=== PATIENT | female | born 1930 | race Caucasian/White ===

== ENCOUNTER 2018-06-06 13:42 | Inpatient (IN) | payer MEDICARE, OTHER ==
[2018-06-06] VITALS (10 sets, daily range): BP systolic 93–142; BP diastolic 43–92
[~2018-06-06] VITALS: Ht 154.9 cm; Wt 73.5 kg
[2018-06-06] MEDS ORDERED: SODIUM CHLORIDE 0.9% 500 ML IVB ONE (14:21)
[2018-06-06 15:03] LABS: Basophils # (auto) 0.1 uL; Eosinophils # (auto) 0 uL; Hemoglobin 7.1 g/dL (12.2-16.2); Lymphocytes # (auto) 1.3 uL; Monocytes # (auto) 0.5 uL; Neutrophils # (auto) 5.6 uL
[2018-06-06 15:04] LABS: Basophils % (auto) 1.1 % (0.0-2.0); Eosinophils % (auto) 0.2 % (0.0-7.0); Hematocrit 20.6 % (36.0-46.0); Lymphocytes % (auto) 17.8 % (10.0-50.0); Mean Corpuscular Hgb Conc. 34.5 g/dL (32.0-36.0); Mean Corpuscular Volume 95.7 fL (80.0-100.0); Monocytes % (auto) 6.6 % (0.0-12.0); Neutrophils % (auto) 74.3 % (37.0-80.0); Platelet Count (auto) 169 10^3/uL (140-450); Red Blood Cells 2.15 10^6/uL (4.0-5.20); Red Cell Distribution Width 14.4 % (11.8-14.3); White Blood Cell 7.6 10^3/uL (4.4-10.8)
[2018-06-06 15:17] LABS: INR 1.1 (0.9-1.15); Partial Thromboplastin Time 23.3 sec (23.78-33.04); Prothrombin Time 11.7 sec (9.27-12.13)
[2018-06-06 15:29] LABS: Alanine Aminotransferase 11 U/L (13-56); Albumin 2.6 g/dL (3.4-5.0); Alkaline Phosphatase 40 U/L (45-117); Anion Gap 12 (5-15); Aspartate Aminotransferase 10 U/L (15-37); BUN/Creatinine Ratio 35.2; Bilirubin, Total 0.4 mg/dL (0.2-1.0); Blood Urea Nitrogen 56 mg/dL (7-18); Calcium 7.5 mg/dL (8.5-10.1); Carbon Dioxide 19 mmol/L (21-32); Chloride 98 mmol/L (98-107); GFR African American 39 mL/min; GFR Non-African American 32 mL/min; Glucose 135 mg/dL (74-106); Magnesium 1.5 mg/dL (1.6-2.6); Potassium 4.5 mmol/L (3.5-5.1); Sodium 129 mmol/L (136-145); Total Protein 5.3 g/dL (6.4-8.2)
[2018-06-06] MEDS ORDERED: MORPHINE SULF INJ 2 MG/ML SYRINGE 1ML IV PRN (16:15)
[2018-06-06] MEDS ORDERED: DEXTROSE (50%) 50ML SYRG IV PRN (16:15)
[2018-06-06] MEDS ORDERED: NITROGLYCERIN 0.4 MG SL TAB SL PRN (16:15)
[2018-06-06] MEDS ORDERED: HYDROcodone-ACET 5/325MG TAB PO PRN (16:30)
[2018-06-06] MEDS ORDERED: ONDANSETRON HCL 4 MG/2 ML VIAL IV PRN (16:30)
[2018-06-06] MEDS ORDERED: cefTRIAXone 1GM/10ml IVPUSH 10 ML IV ONE (16:30)
[2018-06-06] MEDS: InsuLIN REG 1unit/0.01ml Soln (100units/ml) SC SCH ×2 (17:00→22:00)
[2018-06-06] MEDS: ACCU-CHEK COMFORT CURVE STRIP VI SCH ×2 (17:00→22:00)
[2018-06-06] MEDS ORDERED: ETOMIDATE (2MG/ML) 20ML VIAL IV ONE (17:12)
[2018-06-06] MEDS ORDERED: SUCCINYLCHOLINE CHLORIDE 20 MG/ML 10ML VIAL IV ONE (17:13)
[2018-06-06] MEDS ORDERED: NOREPINEPHRINE 8 MG/250ML KIT 250 ML IV ONE (18:34)
[2018-06-06] MEDS ORDERED: NOREPINEPHRINE 8 MG/250ML KIT 250 ML IV SCH (18:45)
[2018-06-06] MEDS: NOREPINEPHRINE 8 MG/250ML KIT 250 ML IV SCH (19:00)
[2018-06-06] MEDS: ATORVASTATIN 20 MG TAB PO SCH (23:20)
[2018-06-07] VITALS (99 sets, daily range): BP systolic 74–150; BP diastolic 29–89
[2018-06-07 00:56] LABS: Hemoglobin 7.2 g/dL (12.2-16.2)
[2018-06-07 00:57] LABS: Hematocrit 21.1 % (36.0-46.0)
[2018-06-07] MEDS ORDERED: TEMAZEPAM 15 MG CAP PO ONE ×2 (01:45→22:00)
[2018-06-07] MEDS: ACCU-CHEK COMFORT CURVE STRIP VI SCH ×4 (07:19→22:08)
[2018-06-07] MEDS: InsuLIN REG 1unit/0.01ml Soln (100units/ml) SC SCH ×4 (07:48→22:00)
[2018-06-07 08:53] LABS: Basophils # (auto) 0.1 uL; Eosinophils # (auto) 0.1 uL; Hemoglobin 8.1 g/dL (12.2-16.2); Lymphocytes # (auto) 1.5 uL; Monocytes # (auto) 0.8 uL; Neutrophils # (auto) 4.6 uL; White Blood Cell 7.1 10^3/uL (4.4-10.8)
[2018-06-07 08:55] LABS: Basophils % (auto) 1.1 % (0.0-2.0); Hematocrit 23.2 % (36.0-46.0); Lymphocytes % (auto) 21.5 % (10.0-50.0); Mean Corpuscular Hemoglobin 32.1 pg (28.0-32.0); Mean Corpuscular Hgb Conc. 34.8 g/dL (32.0-36.0); Mean Corpuscular Volume 92.5 fL (80.0-100.0); Monocytes % (auto) 11.4 % (0.0-12.0); Platelet Count (auto) 129 10^3/uL (140-450); Red Blood Cells 2.51 10^6/uL (4.0-5.20)
[2018-06-07 09:09] LABS: Albumin 2.3 g/dL (3.4-5.0); BUN/Creatinine Ratio 47.8; Calcium 7.5 mg/dL (8.5-10.1); Magnesium 1.3 mg/dL (1.6-2.6); Potassium 4.2 mmol/L (3.5-5.1)
[2018-06-07 09:12] LABS: Bilirubin, Total 0.4 mg/dL (0.2-1.0); Total Protein 4.5 g/dL (6.4-8.2)
[2018-06-07] MEDS: cefTRIAXone 1GM/10ml IVPUSH 10 ML IV SCH (09:47)
[2018-06-07] MEDS: FUROSEMIDE 40 MG TAB PO SCH (09:48)
[2018-06-07] MEDS: MAGNESIUM SULFATE 1GM/100ML 100 ML IV SCH ×2 (09:52→11:02)
[2018-06-07] MEDS ORDERED: PANTOPRAZOLE 40 MG TAB PO SCH (10:00)
[2018-06-07 17:06] LABS: Urine Bacteria MOD /hpf (None Seen); Urine WBC 4029 /hpf (0 - 5); Urine WBC Clumps PRESENT /hpf (None Seen)
[2018-06-07 17:11] LABS: Urine Blood 2+ /uL (Negative)
[2018-06-07] MEDS: ACETAMINOPHEN 500 MG TAB PO PRN (18:38)
[2018-06-07] MEDS: NOREPINEPHRINE 8 MG/250ML KIT 250 ML IV SCH (18:42)
[2018-06-07] MEDS: ATORVASTATIN 20 MG TAB PO SCH (22:11)
[2018-06-07] MEDS: PANTOPRAZOLE 40 MG TAB PO SCH (22:11)
[2018-06-08] VITALS (68 sets, daily range): BP systolic 93–154; BP diastolic 31–74
[2018-06-08 03:29] LABS: Basophils # (auto) 0.1 uL; Basophils % (auto) 0.9 % (0.0-2.0); Eosinophils # (auto) 0.3 uL; Lymphocytes # (auto) 1.8 uL; Red Cell Distribution Width 14.9 % (11.8-14.3); White Blood Cell 6.8 10^3/uL (4.4-10.8)
[2018-06-08 03:31] LABS: Eosinophils % (auto) 3.8 % (0.0-7.0); Hematocrit 20.4 % (36.0-46.0); Lymphocytes % (auto) 26.6 % (10.0-50.0); Mean Corpuscular Hemoglobin 32.5 pg (28.0-32.0); Mean Corpuscular Hgb Conc. 33.6 g/dL (32.0-36.0); Mean Corpuscular Volume 96.5 fL (80.0-100.0); Monocytes # (auto) 0.9 uL; Monocytes % (auto) 12.8 % (0.0-12.0); Neutrophils # (auto) 3.8 uL; Neutrophils % (auto) 55.9 % (37.0-80.0); Nucleated Red Blood Cells % 0.1 %; Platelet Count (auto) 126 10^3/uL (140-450); Red Blood Cells 2.12 10^6/uL (4.0-5.20)
[2018-06-08 03:44] LABS: BUN/Creatinine Ratio 38.5; Calcium 7.6 mg/dL (8.5-10.1); Potassium 3.8 mmol/L (3.5-5.1)
[2018-06-08 03:56] LABS: Hemoglobin 6.9 g/dL (12.2-16.2)
[2018-06-08] MEDS: ACCU-CHEK COMFORT CURVE STRIP VI SCH ×4 (06:48→21:46)
[2018-06-08] MEDS: InsuLIN REG 1unit/0.01ml Soln (100units/ml) SC SCH ×4 (06:48→21:31)
[2018-06-08] MEDS: cefTRIAXone 1GM/10ml IVPUSH 10 ML IV SCH (09:00)
[2018-06-08] MEDS ORDERED: MIDAZOLAM HCL 5 MG/ML-1ML VIAL ONE (11:11)
[2018-06-08] MEDS ORDERED: SODIUM CHLORIDE LOCK 10 ML ONE (11:11)
[2018-06-08] MEDS ORDERED: LIDOCAINE VISCOUS 2% 15ML UD ONE (11:11)
[2018-06-08] MEDS ORDERED: fentaNYL CITRATE 100 MCG/2 ML VL ONE (11:12)
[2018-06-08] MEDS: PANTOPRAZOLE 40 MG TAB PO SCH ×2 (15:00→21:30)
[2018-06-08] MEDS: FUROSEMIDE 40 MG TAB PO SCH (15:00)
[2018-06-08] MEDS: NOREPINEPHRINE 8 MG/250ML KIT 250 ML IV SCH (16:33)
[2018-06-08] MEDS: ATORVASTATIN 20 MG TAB PO SCH (21:30)
[2018-06-08] MEDS: TEMAZEPAM 15 MG CAP PO PRN (22:10)
[2018-06-09 05:00] VITALS: BP 128/51
[2018-06-09] MEDS: ACCU-CHEK COMFORT CURVE STRIP VI SCH ×4 (06:14→21:35)
[2018-06-09] MEDS: InsuLIN REG 1unit/0.01ml Soln (100units/ml) SC SCH ×4 (06:15→21:35)
[2018-06-09 06:33] LABS: Basophils # (auto) 0.1 uL; Basophils % (auto) 0.8 % (0.0-2.0); Eosinophils # (auto) 0.3 uL; Eosinophils % (auto) 4.8 % (0.0-7.0); Hematocrit 26.5 % (36.0-46.0); Hemoglobin 9.1 g/dL (12.2-16.2); Lymphocytes # (auto) 1.3 uL; Mean Corpuscular Hemoglobin 32.1 pg (28.0-32.0); Mean Corpuscular Hgb Conc. 34.4 g/dL (32.0-36.0); Mean Corpuscular Volume 93.5 fL (80.0-100.0); Monocytes # (auto) 0.7 uL; Monocytes % (auto) 10.9 % (0.0-12.0); Neutrophils # (auto) 4.1 uL; Neutrophils % (auto) 63.5 % (37.0-80.0); Nucleated Red Blood Cells % 0.1 %; Platelet Count (auto) 123 10^3/uL (140-450); Red Blood Cells 2.83 10^6/uL (4.0-5.20); Red Cell Distribution Width 14.8 % (11.8-14.3); White Blood Cell 6.5 10^3/uL (4.4-10.8)
[2018-06-09 06:58] LABS: BUN/Creatinine Ratio 24.4; Calcium 7.7 mg/dL (8.5-10.1); Potassium 3.7 mmol/L (3.5-5.1)
[2018-06-09 08:00] VITALS: BP 107/51
[2018-06-09 08:38] VITALS: BP 107/51
[2018-06-09] MEDS: cefTRIAXone 1GM/10ml IVPUSH 10 ML IV SCH (08:46)
[2018-06-09] MEDS: FUROSEMIDE 40 MG TAB PO SCH (08:47)
[2018-06-09] MEDS: PANTOPRAZOLE 40 MG TAB PO SCH ×2 (08:47→21:34)
[2018-06-09 13:00] VITALS: BP 113/54
[2018-06-09] MEDS: ACETAMINOPHEN 500 MG TAB PO PRN (15:45)
[2018-06-09 16:00] VITALS: BP 139/59
[2018-06-09] MEDS: ATORVASTATIN 20 MG TAB PO SCH (21:34)
[2018-06-09] MEDS: TEMAZEPAM 15 MG CAP PO PRN (21:45)
[2018-06-09 22:05] VITALS: BP 129/68
[2018-06-10 04:59] VITALS: BP 126/57
[2018-06-10] MEDS: InsuLIN REG 1unit/0.01ml Soln (100units/ml) SC SCH ×2 (06:30→11:30)
[2018-06-10] MEDS: ACCU-CHEK COMFORT CURVE STRIP VI SCH ×2 (06:30→11:50)
[2018-06-10 06:51] LABS: Basophils # (auto) 0.1 uL; Basophils % (auto) 0.8 % (0.0-2.0); Eosinophils # (auto) 0.2 uL; Eosinophils % (auto) 3.2 % (0.0-7.0); Hematocrit 28.1 % (36.0-46.0); Hemoglobin 9.9 g/dL (12.2-16.2); Lymphocytes # (auto) 1.4 uL; Lymphocytes % (auto) 19.3 % (10.0-50.0); Mean Corpuscular Hemoglobin 32.6 pg (28.0-32.0); Mean Corpuscular Hgb Conc. 35.2 g/dL (32.0-36.0); Mean Corpuscular Volume 92.5 fL (80.0-100.0); Monocytes % (auto) 13.5 % (0.0-12.0); Neutrophils # (auto) 4.6 uL; Neutrophils % (auto) 63.2 % (37.0-80.0); Platelet Count (auto) 138 10^3/uL (140-450); Red Blood Cells 3.04 10^6/uL (4.0-5.20); Red Cell Distribution Width 14.2 % (11.8-14.3); White Blood Cell 7.3 10^3/uL (4.4-10.8)
[2018-06-10 08:47] VITALS: BP 139/64
[2018-06-10] MEDS: PANTOPRAZOLE 40 MG TAB PO SCH (09:32)
[2018-06-10] MEDS: FUROSEMIDE 40 MG TAB PO SCH (09:32)
[2018-06-10] MEDS: cefTRIAXone 1GM/10ml IVPUSH 10 ML IV SCH (09:32)
[2018-06-10 11:26] VITALS: BP 139/64
[2018-06-10 12:30] VITALS: BP 119/60
== END 2018-06-10 13:05 | disposition home or self-care (01) | DRG 871 ==
LOC: EDBD 13:42 → ER 13:46 → TELE 13:47 → ICU WEST 22:04 → CENTRAL 06-08 17:28 → TELE-CENTR 06-10 05:06
PROVIDERS: ADMIT Internal Medicine; ATTEND Internal Medicine
PROC: 30233N1 Transfusion of Nonautologous Red Blood Cells into Peripheral Vein, Percutaneous Approach (ICD-10-PCS; principal; 2018-06-06)
PROC: 0DJ08ZZ Inspection of Upper Intestinal Tract, Via Natural or Artificial Opening Endoscopic (ICD-10-PCS; 2018-06-08)
DX: A41.9 Sepsis, unspecified organism (principal); I50.43 Acute on chronic combined systolic (congestive) and diastolic (congestive) heart failure; K25.4 Chronic or unspecified gastric ulcer with hemorrhage; K29.71 Gastritis, unspecified, with bleeding; R65.21 Severe sepsis with septic shock; I13.0 Hypertensive heart and chronic kidney disease with heart failure and stage 1 through stage 4 chronic kidney disease, or unspecified chronic kidney disease; N39.0 Urinary tract infection, site not specified; E87.1 Hypo-osmolality and hyponatremia; D62 Acute posthemorrhagic anemia; E78.5 Hyperlipidemia, unspecified; I95.9 Hypotension, unspecified; N18.3 Chronic kidney disease, stage 3 (moderate); E83.42 Hypomagnesemia; E83.51 Hypocalcemia; E03.9 Hypothyroidism, unspecified; E11.22 Type 2 diabetes mellitus with diabetic chronic kidney disease; E11.51 Type 2 diabetes mellitus with diabetic peripheral angiopathy without gangrene; I25.10 Atherosclerotic heart disease of native coronary artery without angina pectoris; Z86.73 Personal history of transient ischemic attack (TIA), and cerebral infarction without residual deficits; Z95.5 Presence of coronary angioplasty implant and graft; Z79.899 Other long term (current) drug therapy; Z79.1 Long term (current) use of non-steroidal anti-inflammatories (NSAID); Z88.1 Allergy status to other antibiotic agents; Z88.8 Allergy status to other drugs, medicaments and biological substances; Z90.89 Acquired absence of other organs; Z90.49 Acquired absence of other specified parts of digestive tract
CPT/HCPCS: 36415; 36430; 43235; 70450; 71045; 80048; 80053; 81001; 82270; 82962; 83735; 83880; 84443; 84484; 85014; 85018; 85025; 85610; 85730; 86677; 86850; 86900; 86901; 86920; 87081; 87086; 93005; 94761; 96361; 96374; 97110; 97116; 97163; J0330; J0696; J1815; J2250; J7060